=== PATIENT | female | born 1950 | race Asian ===

== ENCOUNTER 2019-11-29 17:23 | Inpatient (IN) | payer MEDICARE, OTHER ==
[~2019-11-29] VITALS: Ht 149.9 cm; Wt 54.9 kg
--- NOTE | 2019-11-29 17:36 | NUR ---
PT CAN NOT PROVIDE INFORMATION ABOUT HER HOME MEDICATION.
--- NOTE | 2019-11-29 17:40 | NUR ---
PATIENT IS AWAKE AND ALERT BUT SHE IS NOT COOPERATIVE, NOT ALLOWING STAFF TO OBTAIN BLOOD AND 12 LEAD EKG. WILL TRY TO EXPLAIN PROCESS TO PATIENT IN HER LANGUAGE AND ASSURE HER OF HER SAFETY.
[2019-11-29] MEDS ORDERED: HALOPERIDOL LACTATE 5 MG/1 ML VIAL ONE (17:51)
[2019-11-29] MEDS ORDERED: LORAZEPAM 2 MG/1 ML VIAL ONE (17:51)
[2019-11-29] MEDS ORDERED: LORAZEPAM 2 MG/1 ML VIAL IM ONE (18:00)
[2019-11-29] MEDS ORDERED: HALOPERIDOL LACTATE 5 MG/1 ML VIAL IM ONE (18:00)
[2019-11-29 18:02] LABS: *BILIRUBIN,URIN NEGATIVE (NEGATIVE); *BLOOD, URINE 1+ (NEGATIVE); *COLOR,URINE LIGHT YELLOW (YELLOW); *KETONES,URINE NEGATIVE (NEGATIVE); *UROBILINOGEN,URINE 0.2 E.U./dl (NORMAL); LEUKOCYTE ESTERASE ,URINE 1+ (NEGATIVE); NITRITE, URINE NEGATIVE (NEGATIVE); UGLUCOSE NEGATIVE (NEGATIVE)
[2019-11-29 18:09] LABS: *CLARITY,URINE SLIGHTLY HAZY (CLEAR)
[2019-11-29 18:11] LABS: BACTERIA,URINE FEW /HPF (NONE SEEN); SQUAMOUS EPITHELIAL CELL,UR MODERATE /HPF (NONE SEEN)
[2019-11-29 18:13] LABS: *AMPHETAMINE, URINE NEGATIVE (NEGATIVE); *BARBITURATE, URINE NEGATIVE (NEGATIVE); *CANNABINOID, URINE NEGATIVE (NEGATIVE); *COCCAINE, URINE NEGATIVE (NEGATIVE); *OPIATE, URINE NEGATIVE (NEGATIVE); *PHENCYCLIDINE SCREEN,URINE NEGATIVE (NEGATIVE)
--- NOTE | 2019-11-29 18:23 | NUR ---
PATIENT IS AWAKE BUT CALM, WE WERE ABLE TO DO 12 LEAD EKG.
[2019-11-29 18:58] LABS: BASOPHILS # (AUTO) 0.1 K/uL (0.0-8.0); BASOPHILS % (AUTO) 0.8 % (0.0-2.0); EOSINOPHILS % (AUTO) 0.4 % (0.0-7.0); HEMATOCRIT 38.3 % (31.2-41.9); HEMOGLOBIN 13.1 g/dL (10.9-14.3); LYMPHOCYTES # (AUTO) 2.2 K/uL (20.0-40.0); LYMPHOCYTES % (AUTO) 27.5 % (20.5-51.5); MEAN CORPUSCULAR HEMOGLOBIN 30.4 uug (24.7-32.8); MEAN CORPUSCULAR HGB CONC 34 g/dL (32.3-35.6); MEAN CORPUSCULAR VOLUME 89.1 fL (75.5-95.3); MONOCYTES # (AUTO) 0.6 K/uL (2.0-10.0); MONOCYTES % (AUTO) 7.2 % (0.0-11.0); NEUTROPHILS % (AUTO) 64.1 % (38.5-71.5); PLATELET COUNT (AUTO) 378 K/uL (179-408); WHITE BLOOD COUNT (AUTO) 7.8 K/uL (3.8-11.8)
--- NOTE | 2019-11-29 19:02 | NUR ---
Patient is sitting up eating dinner...
--- NOTE | 2019-11-29 19:04 | NUR ---
hand off report given to Iglesia THOMAS
[2019-11-29 19:05] LABS: CARBON DIOXIDE 26 mmol/L (21-32); CHLORIDE 104 mmol/L (98-107); CREATININE 0.8 mg/dL (0.6-1.3); GLUCOSE 115 mg/dL (74-106); POTASSIUM 3.9 mmol/L (3.5-5.1); UREA NITROGEN, BLOOD 16 mg/dL (7-18)
[2019-11-29 19:11] LABS: ALANINE AMINOTRANSFERASE 18 U/L (14-59); ALKALINE PHOSPHATASE 82 U/L (50-136); ASPARTATE AMINOTRANSFERASE 16 U/L (15-37); BILIRUBIN,DIRECT 0.1 mg/dL (0.0-0.2); BILIRUBIN,TOTAL 0.1 mg/dL (0.2-1.0); TOTAL PROTEIN, SERUM 7.7 g/dL (6.4-8.2)
[2019-11-29 19:12] LABS: ACETAMINOPHEN < 2.0 ug/mL (10-30)
[2019-11-29 19:25] LABS: ETHANOL < 3 MG/DL (0-0)
--- NOTE | 2019-11-29 19:54 | NUR ---
REPORT WAS GIVEN TO RN MHU. PT WAS TRANSFERED TO ROOM 137.
--- NOTE | 2019-11-29 20:30 | NUR ---
Pt was brought in to MHU from ER via wheelchair under Dr. Friedman/ Dr. Sebastian. Pt is Ambulatory, very noncooperative, refusing most of the procedures, refused vital signs to be taken, refused skin check.
[2019-11-29] MEDS ORDERED: TEMAZEPAM 7.5 MG CAPSULE PO PRN (20:45)
[2019-11-29] MEDS ORDERED: ACETAMINOPHEN 325 MG TABLET PO PRN (20:45)
[2019-11-29] MEDS ORDERED: BLOOD SUGAR DIAGNOSTIC 1 EACH STRIP VI ONE (20:45)
[2019-11-29] MEDS ORDERED: LORAZEPAM 1 MG TABLET PO PRN (20:45)
[2019-11-29] MEDS ORDERED: MAG HYDROX/AL HYDROX/SIMETH 30 ML LIQUID UDC PO PRN (20:45)
[2019-11-29] MEDS ORDERED: MAGNESIUM HYDROXIDE 30 ML LIQUID UDC PO PRN (20:45)
--- NOTE | 2019-11-30 06:40 | NUR ---
Pt slept 7.0 hrs last night.
[2019-11-30 07:17] LABS: BILIRUBIN,TOTAL 0.3 mg/dL (0.2-1.0); CREATININE 0.8 mg/dL (0.6-1.3); POTASSIUM 4.1 mmol/L (3.5-5.1); TOTAL PROTEIN, SERUM 7.2 g/dL (6.4-8.2)
[2019-11-30 07:30] VITALS: BP 102/69
[2019-11-30] MEDS: NICOTINE 14 MG/24HR PATCH TD SCH (09:24)
--- NOTE | 2019-11-30 14:35 | NUR ---
GPS: Nursing Notes: Destructive Behavior to Others: Patient awake and responding to her name, resistant with nursing care, impaired judgment, believes that she is leaving today, gets easily irritable when redirected, loud and pressured speech, sitting next to the exit door with her jacket, AWOL risk, redirected and reoriented during shift, but unable to formulate a viable plan for self care, stating "I am leaving... Home... Today...", unpredictable behavior, refusing to participate in therapeutic groups, episode of trying to strike to staff, continue with treatment plan.
[2019-11-30] MEDS: QUETIAPINE FUMARATE 25 MG TABLET PO SCH ×2 (17:44→20:17)
[2019-11-30] MEDS: DIVALPROEX 250 MG TABLET.DR PO SCH (17:44)
[2019-11-30 20:00] VITALS: BP 140/85
--- NOTE | 2019-12-01 05:52 | NUR ---
GPS: Pt.now awake and frequently at nurses station and expressing her desire to go home. Re-directed frequently and instructed to wait for doctor to come in for further eval/tx. Pt.listens to staff's re-direction and without any agitation noted. AWOL precautions observed.
[2019-12-01 07:30] VITALS: BP 131/69
[2019-12-01] MEDS: DIVALPROEX 250 MG TABLET.DR PO SCH ×2 (08:53→17:04)
[2019-12-01] MEDS: QUETIAPINE FUMARATE 25 MG TABLET PO SCH ×3 (08:53→20:03)
[2019-12-01] MEDS: NICOTINE 14 MG/24HR PATCH TD SCH (08:53)
--- NOTE | 2019-12-01 09:54 | NUR ---
Social Work Individual Therapy Note: : plywood factory worker met with patient for brief counseling to address the importance of self-care, grooming and bathing. This resume writer attempted to have a meaningful conversation with patient on the importance of accepting bathing and grooming from the staff. While this resume writer was educating patient she stated "Yes, I take care of myself". Patient refused to continue the conversation and walked away. This resume writer will attempt to follow up again.
--- NOTE | 2019-12-01 10:16 | NUR ---
Social Work Initial Discharge Plan: Patient currently resides at [address] [facility] [place] [address]; ([phone]). drop worker will work with the patient and the MD regarding appropirate discharge planning. drop worker will form a safe and proper discharge. Per patient's brother Juve Lisa ([phone]) stated that patient was at [facility] and would want patient back there. This database report writer will follow up.
--- NOTE | 2019-12-01 10:17 | NUR ---
Social Work Family Contact: hall worker contacted patients brother Juve Lisa ([phone]) who stated that patient resided at [facility] and would want her back to that group home. This mortgage or loan underwriter will follow up with the facility to see if patient is welcomed back upon discharge.
--- NOTE | 2019-12-01 10:18 | NUR ---
Social Work Discharge Plan: chemical plant worker contacted Tristen gardner from [facility] ([phone]) who stated that patient is welcomed back upon discharge.
--- NOTE | 2019-12-01 10:38 | NUR ---
Social Work Substance Abuse Intervention:Patient was provided with a brief substance abuse intervention and referred to [facility] , [facility] , and [facility] .
[2019-12-01 15:20] VITALS: BP 199/118
--- NOTE | 2019-12-01 15:47 | NUR ---
GPS: Nursing Notes: Destructive Behavior to Others: Patient awake and responding to her name, impaired judgment, sitting on the floor next to the exit door, staring at the door, AWOL risk, resistant with nursing care at times, believes that she is leaving today, an episode of going into social work coordinator office and threw water at them without provocation, staff got scare and closed the office, redirected during shift, unable to formulate a viable plan for self care, poor anger management, continue with treatment plan.
[2019-12-01 18:45] VITALS: BP 147/80
[2019-12-01 20:00] VITALS: BP 113/91
[2019-12-01] MEDS: DOCUSATE SODIUM 250 MG CAPSULE PO SCH (20:03)
[2019-12-01] MEDS ORDERED: DOCUSATE SODIUM 100 MG CAPSULE PO SCH (21:00)
[2019-12-02 07:54] VITALS: BP 153/116
[2019-12-02] MEDS: NICOTINE 14 MG/24HR PATCH TD SCH (08:13)
[2019-12-02] MEDS: QUETIAPINE FUMARATE 25 MG TABLET PO SCH ×3 (08:13→20:04)
[2019-12-02] MEDS: DIVALPROEX 250 MG TABLET.DR PO SCH ×2 (08:13→17:05)
[2019-12-02 15:23] VITALS: BP 174/96
[2019-12-02 19:43] VITALS: BP 147/67
[2019-12-02] MEDS: DOCUSATE SODIUM 250 MG CAPSULE PO SCH (20:04)
[2019-12-03 07:30] VITALS: BP 147/77
[2019-12-03] MEDS: NICOTINE 14 MG/24HR PATCH TD SCH (08:31)
[2019-12-03] MEDS: DIVALPROEX 250 MG TABLET.DR PO SCH (08:31)
[2019-12-03] MEDS: QUETIAPINE FUMARATE 25 MG TABLET PO SCH ×3 (08:31→20:12)
--- NOTE | 2019-12-03 13:44 | NUR ---
GPS: CALLED AND SPOKE WITH DR. PACHECO, REGARDING PATIENT UA RESULT, PATIENT CALM AND COOPERATIVE, DENIES OF ANY SYMPTOM OF INFECTION, DOCTOR SAYS SHE WILL LOOK INTO IT, AND FOLLOW UP ON THE PENDING CULTURE RESULT, AND CONTINUE MONITOR FOR ANY SIGN OF INFECTION Addendum: 12/03/19 at 1354 by HEIDE GALLARDO RN FOLLOWED UP WITH LABORATORY , URINE CULTURE CONTAMINANTS, AND SPOKE WITH DR. PACHECO WITH NNO, WILL CONTINUE MONITOR
[2019-12-03 16:00] VITALS: BP 170/74
[2019-12-03] MEDS: VALPROIC ACID 250 MG CAPSULE PO SCH (17:33)
[2019-12-03 18:30] LABS: *BILIRUBIN,URIN NEGATIVE (NEGATIVE); *CLARITY,URINE CLEAR (CLEAR); *COLOR,URINE YELLOW (YELLOW); *KETONES,URINE NEGATIVE (NEGATIVE); *UROBILINOGEN,URINE 0.2 E.U./dl (NORMAL); LEUKOCYTE ESTERASE ,URINE 1+ (NEGATIVE); NITRITE, URINE NEGATIVE (NEGATIVE); PH,URINE 5.5 (5.0-8.0); UGLUCOSE NEGATIVE (NEGATIVE)
[2019-12-03 18:53] LABS: *BLOOD, URINE TRACE (NEGATIVE)
[2019-12-03 18:55] LABS: MUCUS,URINE FEW /LPF (0-FEW); RBC,URINE 0-3 /HPF (0-3); SQUAMOUS EPITHELIAL CELL,UR MODERATE /HPF (NONE SEEN)
[2019-12-03 20:00] VITALS: BP 155/72
[2019-12-03] MEDS: ATORVASTATIN 20 MG TABLET PO SCH (20:12)
[2019-12-03] MEDS: DOCUSATE SODIUM 250 MG CAPSULE PO SCH (20:12)
[2019-12-04 07:10] LABS: BASOPHILS # (AUTO) 0.1 K/uL (0.0-8.0); BASOPHILS % (AUTO) 1.1 % (0.0-2.0); EOSINOPHILS # (AUTO) 0.1 K/uL (0.0-0.7); EOSINOPHILS % (AUTO) 1.1 % (0.0-7.0); HEMATOCRIT 38.1 % (31.2-41.9); HEMOGLOBIN 12.8 g/dL (10.9-14.3); LYMPHOCYTES % (AUTO) 41.6 % (20.5-51.5); MEAN CORPUSCULAR HEMOGLOBIN 30.3 uug (24.7-32.8); MEAN CORPUSCULAR HGB CONC 34 g/dL (32.3-35.6); MONOCYTES # (AUTO) 0.5 K/uL (2.0-10.0); MONOCYTES % (AUTO) 6.6 % (0.0-11.0); NEUTROPHILS # (AUTO) 3.6 K/uL (1.8-8.9); NEUTROPHILS % (AUTO) 49.6 % (38.5-71.5); PLATELET COUNT (AUTO) 384 K/uL (179-408); RED BLOOD CELL COUNT(AUTO) 4.23 MIL/uL (3.63-4.92); WHITE BLOOD COUNT (AUTO) 7.3 K/uL (3.8-11.8)
[2019-12-04 07:21] LABS: CARBON DIOXIDE 29 mmol/L (21-32); CHLORIDE 108 mmol/L (98-107); CREATININE 0.8 mg/dL (0.6-1.3); GLUCOSE 95 mg/dL (74-106); POTASSIUM 4.4 mmol/L (3.5-5.1); UREA NITROGEN, BLOOD 11 mg/dL (7-18)
[2019-12-04 07:30] VITALS: BP 109/64
[2019-12-04] MEDS: VALPROIC ACID 250 MG CAPSULE PO SCH ×3 (08:10→16:14)
[2019-12-04] MEDS: QUETIAPINE FUMARATE 25 MG TABLET PO SCH ×3 (08:12→20:43)
[2019-12-04] MEDS: NICOTINE 14 MG/24HR PATCH TD SCH (08:12)
--- NOTE | 2019-12-04 15:59 | NUR ---
Gps/Manufacturing Engineer Automotive- Isolative, stays in her room in bed most of the time, encouraged to attend her group therapy , compliant with her routine meds. encouraged to verbalized needs and feelings
[2019-12-04 16:25] VITALS: BP 141/83
--- NOTE | 2019-12-04 20:00 | NUR ---
RECEIVED PATIENT IN HER ROOM, SHE IS NOTED AWAKE, AND SMILING. ASSESSMENT IS LIMITED D/T LANGUAGE BARRIER (SHE IS TAMAZIGHT). V/S STABLE, PATIENT WAS GIVEN PO FLUIDS AND SNACKS. SHE IS REASSURED FOR HER SAFETY, SAFETY AND FALL PRECAUTION IN PLACE. WILL CONTINUE TO MONITOR.
[2019-12-04 20:39] VITALS: BP 109/58
[2019-12-04] MEDS: ATORVASTATIN 20 MG TABLET PO SCH (20:42)
[2019-12-04] MEDS: DOCUSATE SODIUM 250 MG CAPSULE PO SCH (20:43)
--- NOTE | 2019-12-05 08:25 | NUR ---
Social Work Discharge: Patient will be discharged [place] [address]; ([phone]) via Ambulance transportation at 12PM. Outpatient Case Manager spoke with Tristen, Marine Radio Installer And Servicer at [facility]; ([phone]), who stated patient will be accepted at facility today. Patient is alert and oriented x1-2, and is not able to plan for self-care at this time, but is willing to accept care provided for her at the facility. Patient denies any suicidal or homicidal ideations. Patient is aware and agreeable with discharge plans. Patients brother Juve Lisa, ([phone]) is aware and agreeable with discharge plans. Patient will continue to follow-up with her Psychiatrist Dr. Sebastian and Catastrophe Claims [place] [address]; ([phone]). Patient will follow-up at the center. Patient presents with euthymic mood and congruent affect. Addendum: 12/05/19 at 0910 by BRENDA WADE Patient will be discharged [place] [address]; ([phone]) via Ambulance transportation at 12PM. Outpatient Case Manager spoke with Tristen Marine Radio Installer And Servicer at [facility]; ([phone]), who stated patient will be accepted at facility today. Patient is alert and oriented x1-2, and is not able to plan for self-care at this time, but is willing to accept care provided for her at the facility. Patient denies any suicidal or homicidal ideations. Patient is aware and agreeable with discharge plans. Patients brother Juve Lisa, ([phone]) is aware and agreeable with discharge plans. Patient will continue to follow-up with her Psychiatrist Dr. Sebastian and Catastrophe Claims [place] [address]; ([phone]) and will discuss smoking cessation and address substance abuse dependency. Patient was provided with a brief substance abuse intervention and referred to [facility] , Ad[facility] Su[facility] , and [facility] . Patient presents with euthymic mood and congruent affect.
--- NOTE | 2019-12-05 08:26 | NUR ---
Social Work Firearms Report: Yard Demurrage Clerk completed and submitted a [employer] firearms report for 5250 grave disability certification. A copy of report has been placed in patient chart.
--- NOTE | 2019-12-05 08:27 | NUR ---
Social Work Family Contact: optical goods worker contacted patients brother Juve Lisa, ([phone]) and left a voicemail that patient will be discharged to [facility] today.
[2019-12-05 08:30] VITALS: BP 124/52
[2019-12-05] MEDS: VALPROIC ACID 250 MG CAPSULE PO SCH (08:44)
[2019-12-05] MEDS: QUETIAPINE FUMARATE 25 MG TABLET PO SCH (08:44)
[2019-12-05] MEDS: NICOTINE 14 MG/24HR PATCH TD SCH (08:45)
--- NOTE | 2019-12-05 09:58 | NUR ---
Social Work Individual Therapy Note: sort line worker met with patient for brief counseling to address the importance of self-care, grooming and bathing. Patient was able to be cooperative with this technical writer and was able to listen. She stated that she "takes care of herself" and will continue to take care of her needs. sort line worker provided education and actively listened to patient.
--- NOTE | 2019-12-05 11:12 | NUR ---
Gps/Vacuum Tank Tender- Called [facility], report given to Hood Evans. Patient was well informed of her discharged plan today, pi noon.ck u[p time arranged for 1200.
== END 2019-12-05 12:35 | DRG 885 ==
LOC: ER 17:33 → GPS 19:33
PROVIDERS: ADMIT Psychiatry & Neurology Psychiatry; ATTEND Internal Medicine
DX: F29 Unspecified psychosis not due to a substance or known physiological condition (principal); F03.91 Unspecified dementia, unspecified severity, with behavioral disturbance; F41.9 Anxiety disorder, unspecified; M62.81 Muscle weakness (generalized); F32.9 Major depressive disorder, single episode, unspecified
CPT/HCPCS: 36415; 71045; 80164; 80307; 85025; 87086; 93005; A4663; G0480; G0480-TC; J1630; J2060; J3490

== ENCOUNTER 2021-07-09 20:22 | Inpatient (IN) | payer MEDICARE, OTHER ==
[~2021-07-09] VITALS: Ht 149.9 cm; Wt 55.3 kg
[~2021-07-09 20:22] MED LIST: DOCU100C36 PO
--- NOTE | 2021-07-09 20:25 | NUR ---
Dr. Álvarez at bedside for MSE.
[2021-07-09] MEDS ORDERED: ZIPRASIDONE MESYLATE 20 MG VIAL IM ONE ×2 (20:45→21:05)
[2021-07-09 20:51] LABS: HEMATOCRIT 41.1 % (31.2-41.9); MEAN CORPUSCULAR HEMOGLOBIN 30.5 uug (24.7-32.8); MEAN CORPUSCULAR VOLUME 90.5 fL (75.5-95.3); PLATELET COUNT (AUTO) 407 K/uL (179-408)
[2021-07-09 20:58] LABS: CARBON DIOXIDE 28 mmol/L (21-32); CHLORIDE 100 mmol/L (98-107); CREATININE 0.7 mg/dL (0.6-1.3); GLUCOSE 114 mg/dL (74-106); POTASSIUM 3.8 mmol/L (3.5-5.1); UREA NITROGEN, BLOOD 11 mg/dL (7-18)
[2021-07-09 21:04] LABS: ACETAMINOPHEN < 2.0 ug/mL (10-30); ALANINE AMINOTRANSFERASE 45 U/L (14-59); ALKALINE PHOSPHATASE 109 U/L (50-136); ASPARTATE AMINOTRANSFERASE 35 U/L (15-37); BILIRUBIN,DIRECT 0.1 mg/dL (0.0-0.2); BILIRUBIN,TOTAL 0.3 mg/dL (0.2-1.0)
[2021-07-09 21:07] LABS: ETHANOL < 3 MG/DL (0-0)
--- NOTE | 2021-07-09 21:08 | NUR ---
Pt out of ER for CT.
--- NOTE | 2021-07-09 21:25 | NUR ---
Pt back to ER from CT.
[2021-07-09 21:58] LABS: *BILIRUBIN,URIN NEGATIVE (NEGATIVE); *BLOOD, URINE NEGATIVE (NEGATIVE); *CLARITY,URINE CLEAR (CLEAR); *COLOR,URINE STRAW (YELLOW); *KETONES,URINE NEGATIVE (NEGATIVE); *UROBILINOGEN,URINE 0.2 E.U./dl (NORMAL); LEUKOCYTE ESTERASE ,URINE NEGATIVE (NEGATIVE); NITRITE, URINE NEGATIVE (NEGATIVE); PH,URINE 6.5 (5.0-8.0); UGLUCOSE NEGATIVE (NEGATIVE)
[2021-07-09 22:08] LABS: *AMPHETAMINE, URINE NEGATIVE (NEGATIVE); *CANNABINOID, URINE NEGATIVE (NEGATIVE); *COCCAINE, URINE NEGATIVE (NEGATIVE); *OPIATE, URINE NEGATIVE (NEGATIVE); *PHENCYCLIDINE SCREEN,URINE NEGATIVE (NEGATIVE)
--- NOTE | 2021-07-09 23:30 | NUR ---
Pt medically cleared by Dr. Álvarez.
[2021-07-09] MEDS ORDERED: OLAN20TA24 PO (23:45)
[2021-07-09] MEDS ORDERED: DIVA500T2 PO (23:45)
--- NOTE | 2021-07-09 23:50 | NUR ---
Report given to Thelma THOMAS MHU.
[2021-07-10] MEDS ORDERED: BLOOD SUGAR DIAGNOSTIC 1 EACH STRIP VI ONE (00:30)
[2021-07-10] MEDS ORDERED: ACETAMINOPHEN 325 MG TABLET PO PRN (00:30)
[2021-07-10] MEDS ORDERED: MAGNESIUM HYDROXIDE 30 ML LIQUID UDC PO PRN (00:30)
[2021-07-10] MEDS ORDERED: MAG HYDROX/AL HYDROX/SIMETH 30 ML LIQUID UDC PO PRN (00:30)
[2021-07-10 01:51] VITALS: BP 174/85
[2021-07-10] MEDS ORDERED: CLONIDINE HCL 0.2 MG TABLET PO STA (02:07)
[2021-07-10 02:40] VITALS: BP 185/95
--- NOTE | 2021-07-10 02:40 | NUR ---
Patient arrived to the MHU via gurney , sleeping but arousable by touch. No signs of agitation. Patient helped to a boo chair and the the blood pressure was 185/95. The emergency response technician for Ale Silver MANAGER ETL was notified and this conventional underwriter received an order for 0.2 mg clonidine PO x1. The patient has not taken medications for 2 weeks per the hold, but this conventional underwriter will attempt to administer the medication. The MANAGER ETL said that if patient does not take the pill, they will need to be readmitted to the ER to be stabilized for admission. Continuing to monitor and provide a safe environment.
--- NOTE | 2021-07-10 03:00 | NUR ---
Patient took the medication without any difficulty. Upon recheck of the b/p it was 145/89. Patient will remain in the unit and the VS will be monitored and treated as needed.
[2021-07-10] MEDS ORDERED: CLONIDINE HCL 0.2 MG TABLET ONE (03:13)
[2021-07-10 03:30] VITALS: BP 145/89
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
[2021-07-10 07:54] VITALS: BP 123/98
[2021-07-10] MEDS ORDERED: CLONIDINE HCL 0.1 MG TABLET PO PRN (10:00)
[2021-07-10] MEDS: LISINOPRIL 5 MG TABLET PO SCH (10:39)
[2021-07-10] MEDS: OLANZAPINE 5 MG TABLET PO SCH ×2 (10:39→20:19)
[2021-07-10] MEDS: DIVALPROEX 250 MG TABLET.DR PO SCH ×3 (10:39→17:31)
[2021-07-10] MEDS: LORAZEPAM 1 MG TABLET PO PRN (13:12)
[2021-07-10 16:38] VITALS: BP 94/65
--- NOTE | 2021-07-10 18:27 | NUR ---
GPS: Nursing Notes: Thought Disorder: Patient is awake and responding to her name, cooperative with nursing care, but minimal participation in therapeutic groups, responding to internal stimuli by shouting to unseen others, episodes of touching the air when talking to unseen others, redirected and reoriented during shift, compliant with her medications, loud and pressured speech at times toward staff, unable to formulate a viable plan for self care, continue to monitor for safety, continue with treatment plan.
[2021-07-10 20:02] VITALS: BP 111/62
[2021-07-10] MEDS: ATORVASTATIN 10 MG TABLET PO SCH (20:19)
[2021-07-10] MEDS: DOCUSATE SODIUM 250 MG CAPSULE PO SCH (20:19)
--- NOTE | 2021-07-11 05:52 | NUR ---
GPS: Pt.slept 8 hrs.last night. Observed to be talking to self and laughing inappropriately. Re-directed prn.. No increased agitation noted. Will continue to monitor.
[2021-07-11 07:38] VITALS: BP 136/79
[2021-07-11] MEDS: OLANZAPINE 5 MG TABLET PO SCH ×2 (08:41→20:10)
[2021-07-11] MEDS: LISINOPRIL 5 MG TABLET PO SCH (08:41)
[2021-07-11] MEDS: DIVALPROEX 250 MG TABLET.DR PO SCH ×3 (08:41→17:00)
--- NOTE | 2021-07-11 15:33 | NUR ---
BRENDA Initial Discharge Plan: Pt currently resides at home [address], [place] [address]; ([phone]) with her cousin, Jared ([phone]). Per Jared, he would like the pt to return to [facility]. BRENDA will continue to work with the pt and the MD regarding appropriate discharge planning. BRENDA will form a safe and proper discharge.
--- NOTE | 2021-07-11 15:35 | NUR ---
Firearms Report: Home Health Outreach Coordinator completed and submitted a [employer] firearms report for 5150 grave disability certifications. A copy of report has been placed in patient chart.
--- NOTE | 2021-07-11 15:35 | NUR ---
BRENDA Family Contact: BRENDA spoke with patient's cousin, Jared ([phone]) and discussed treatment and discharge plan. Per Jared, he would like the pt to return to [facility].
[2021-07-11 15:42] VITALS: BP 127/64
--- NOTE | 2021-07-11 18:59 | NUR ---
GPS: Nursing Notes: Thought Disorder: Patient is awake and responding to her name, cooperative with nursing care, compliant with her medications, responding to internal stimuli by talking and grabbing the air with her hands, needs prompting to participate in therapeutic groups, unable to formulate a viable plan for self care, continue to monitor for safety, continue with treatment plan.
[2021-07-11] MEDS: ATORVASTATIN 10 MG TABLET PO SCH (20:10)
[2021-07-11] MEDS: DOCUSATE SODIUM 250 MG CAPSULE PO SCH (20:10)
[2021-07-11] MEDS: LORAZEPAM 1 MG TABLET PO PRN (20:37)
[2021-07-11 20:41] VITALS: BP 121/62
--- NOTE | 2021-07-11 20:42 | NUR ---
GPS: Pt.is anxious,restless,and responding to internal stimuli. Re-directed prn. Due bedtime meds.were already given earlier. Ativan 1mg PO given at this time. Will monitor effectiveness. Safe environment provided.
[2021-07-12 07:52] VITALS: BP 89/65
[2021-07-12] MEDS: LISINOPRIL 5 MG TABLET PO SCH ×2 (08:14→16:51)
[2021-07-12] MEDS: OLANZAPINE 5 MG TABLET PO SCH ×2 (08:14→20:06)
[2021-07-12] MEDS: DIVALPROEX 250 MG TABLET.DR PO SCH ×3 (08:14→16:57)
--- NOTE | 2021-07-12 11:39 | NUR ---
BRENDA Family Contact: SW spoke with patient's cousin, Jared ([phone]) who requested for a SNF referral to [facility] [address] [place] [address] .
--- NOTE | 2021-07-12 11:40 | NUR ---
BRENDA SNF Referral: BRENDA faxed [facility]'s referral packet [facility] [address] [facility] [address] attention Cristina applications coordinator ([phone]) (fax: [phone]) Addendum: 07/12/21 at 1333 by TRISH PEARL Cristina informed this social media marketing analyst they are unable to accept patient due to psych issues.
--- NOTE | 2021-07-12 13:35 | NUR ---
BRENDA SNF Referral: BRENDA faxed patient's referral packet to [facility] attention to Jordyn (f: [phone]) fo review. Addendum: 07/13/21 at 1153 by TRISH PEARL Pt is accepted for placement.
--- NOTE | 2021-07-12 15:39 | NUR ---
GPS: Nursing Notes: Thought Disorder: Patient is awake and responding to internal stimuli by talking to unseen others, episodes of shouting and grabbing the air with her hands, redirected and reoriented to reality, following staff directions, cooperative with nursing care, compliant with her medications, needs prompting to participate in therapeutic groups, isolative and withdrawn in her room at times, unable to formulate a viable plan for self care, pleasant and interactive with staff, continue to monitor for safety, continue with treatment plan.
[2021-07-12 16:00] VITALS: BP 157/87
[2021-07-12 19:58] VITALS: BP 118/68
[2021-07-12] MEDS: ATORVASTATIN 10 MG TABLET PO SCH (20:06)
[2021-07-12] MEDS: DOCUSATE SODIUM 250 MG CAPSULE PO SCH (20:06)
[2021-07-12] MEDS: LORAZEPAM 1 MG TABLET PO PRN (23:37)
--- NOTE | 2021-07-12 23:37 | NUR ---
GPS: Pt.noted to be anxious,talking to self/hallucinating. Re-directed prn. Ativan 1mg PO given. No aggressive behavior noted. Will continue to monitor.
[2021-07-13 07:30] VITALS: BP 119/70
[2021-07-13] MEDS: LISINOPRIL 5 MG TABLET PO SCH (09:00)
[2021-07-13] MEDS: DIVALPROEX 250 MG TABLET.DR PO SCH ×3 (09:11→17:10)
[2021-07-13] MEDS: OLANZAPINE 5 MG TABLET PO SCH ×2 (09:16→21:12)
--- NOTE | 2021-07-13 11:53 | NUR ---
BRENDA Family Contact: BRENDA spoke with patient's cousin, Jared ([phone]) and informed that [facility] did not accept patient for placement. SW informed [facility] accepted pt. Mr. Coleman is agreeable with [facility].
[2021-07-13 16:00] VITALS: BP 157/80
--- NOTE | 2021-07-13 18:41 | NUR ---
GPS: PT ON BED TODAY. PT NO AGITATION NOTED. COMPLIANT WITH MEDICATIONS. REDIRECTED PT WHEN TALKING TO HERSELF. PT EATS GOOD WITH EVERY MEAL.
[2021-07-13 20:00] VITALS: BP 116/69
[2021-07-13] MEDS: DOCUSATE SODIUM 250 MG CAPSULE PO SCH (21:11)
[2021-07-13] MEDS: ATORVASTATIN 10 MG TABLET PO SCH (21:11)
--- NOTE | 2021-07-14 00:39 | NUR ---
Received to care, lying in bed, pleasant upon approach. compliant with medications. Bedtime snacks were given, and fluids were encouraged. She was observed to be talking to self, at times. She fell asleep, around 2300, and as of now, she appears to be asleep. No distress noted. will continue to monitor closely.
--- NOTE | 2021-07-14 06:53 | NUR ---
Slept 4.75 hours, total. Continues to sleep. No distress noted.
[2021-07-14 07:30] VITALS: BP 94/48
[2021-07-14] MEDS: LISINOPRIL 5 MG TABLET PO SCH (08:40)
[2021-07-14] MEDS: OLANZAPINE 5 MG TABLET PO SCH ×2 (08:40→20:22)
[2021-07-14] MEDS: DIVALPROEX 250 MG TABLET.DR PO SCH ×3 (08:40→16:01)
[2021-07-14 16:00] VITALS: BP 151/79
--- NOTE | 2021-07-14 16:45 | NUR ---
GPS: PT ALERT AND ORIENTED X 2. PT WITH EPISODE OF TALKING TO SELF. WANDERING AROUND THE HALLWAY BUT DENIES ANY AGRESSIVENESS. COMPLIANT WITH MEDICATION. COOPERATIVE WITH CARE.
[2021-07-14 20:08] VITALS: BP 116/64
[2021-07-14] MEDS: DOCUSATE SODIUM 250 MG CAPSULE PO SCH (20:23)
[2021-07-14] MEDS: ATORVASTATIN 10 MG TABLET PO SCH (20:23)
--- NOTE | 2021-07-14 21:57 | NUR ---
Received to care, lying in bed, pleasant upon approach. compliant with medications. Bedtime snacks were given, and fluids were encouraged. No psychotic behaviors noted. of now, she appears to be asleep. No distress noted. will continue to monitor closely.
[2021-07-15 07:30] VITALS: BP 166/77
[2021-07-15] MEDS: DIVALPROEX 250 MG TABLET.DR PO SCH ×3 (09:14→17:40)
[2021-07-15] MEDS: LISINOPRIL 5 MG TABLET PO SCH (09:15)
[2021-07-15] MEDS: OLANZAPINE 5 MG TABLET PO SCH ×2 (09:15→20:27)
--- NOTE | 2021-07-15 13:22 | NUR ---
BRENDA PC Hearing: Patient had 5250 probable cause hearing today and it was upheld for grave disability.
[2021-07-15 16:13] VITALS: BP 111/82
[2021-07-15 20:00] VITALS: BP 134/69
[2021-07-15] MEDS: DOCUSATE SODIUM 250 MG CAPSULE PO SCH (20:27)
[2021-07-15] MEDS: ATORVASTATIN 10 MG TABLET PO SCH (20:28)
[2021-07-15] MEDS: ZOLPIDEM 5 MG TABLET PO PRN (22:42)
--- NOTE | 2021-07-16 00:46 | NUR ---
Received to care, lying in bed, pleasant upon approach. compliant with medications. Bedtime snacks were given, and fluids were encouraged. Observed to be talking to self. Assisted with a shower. CAROLINA Emerson, given for insomnia, at 2242, and she was asleep within an hour. As of now, she appears to be asleep. No distress noted. will continue to monitor closely.
--- NOTE | 2021-07-16 06:28 | NUR ---
Slept 6.0 hours, total. Continues to sleep. No distress noted.
[2021-07-16 08:14] VITALS: BP 123/83
[2021-07-16] MEDS: OLANZAPINE 5 MG TABLET PO SCH ×2 (08:41→21:17)
[2021-07-16] MEDS: DIVALPROEX 250 MG TABLET.DR PO SCH ×3 (08:41→16:44)
[2021-07-16] MEDS: LISINOPRIL 5 MG TABLET PO SCH (08:41)
--- NOTE | 2021-07-16 13:10 | NUR ---
GPS: RECEIVE DPT TODAY, ALERT AND VERBALLY RESPONSIVE. LIKES TO WALK AROUND THE HALLWAY. NO AGITATION OR BEHAVIOR NOTED. COOPERATIVE WITH CARE AND COMPLIANT WITH MEDS.
[2021-07-16 15:36] VITALS: BP 110/58
[2021-07-16 20:00] VITALS: BP 109/59
[2021-07-16] MEDS: DOCUSATE SODIUM 250 MG CAPSULE PO SCH (21:17)
[2021-07-16] MEDS: ATORVASTATIN 10 MG TABLET PO SCH (21:17)
[2021-07-17 07:30] VITALS: BP 123/76
[2021-07-17] MEDS: LISINOPRIL 5 MG TABLET PO SCH (08:34)
[2021-07-17] MEDS: DIVALPROEX 250 MG TABLET.DR PO SCH ×3 (08:35→16:35)
[2021-07-17] MEDS: OLANZAPINE 5 MG TABLET PO SCH ×2 (08:35→20:22)
--- NOTE | 2021-07-17 09:00 | NUR ---
GPS: RECEIVED PT ON BED. AWAKE, ALERT AND VERBALLY RESPONSIVE WITH MINIMAL CANADIAN. PT NO AGITATION NOTED. CALM AND COOPERATIVE WITH CARE.
[2021-07-17 16:00] VITALS: BP 128/82
[2021-07-17 20:00] VITALS: BP 72/49
[2021-07-17] MEDS: DOCUSATE SODIUM 250 MG CAPSULE PO SCH (20:21)
[2021-07-17 20:44] VITALS: BP 138/68
[2021-07-17 20:45] VITALS: BP 138/68
[2021-07-17] MEDS: ATORVASTATIN 10 MG TABLET PO SCH (21:21)
[2021-07-18] MEDS: DIVALPROEX 250 MG TABLET.DR PO SCH ×3 (08:16→16:47)
[2021-07-18] MEDS: LISINOPRIL 5 MG TABLET PO SCH (08:16)
[2021-07-18] MEDS: OLANZAPINE 5 MG TABLET PO SCH ×2 (08:17→20:10)
[2021-07-18 08:28] VITALS: BP 141/71
[2021-07-18 09:17] LABS: CREATININE 0.9 mg/dL (0.6-1.3); POTASSIUM 4.2 mmol/L (3.5-5.1)
[2021-07-18 15:34] VITALS: BP 127/75
[2021-07-18 19:55] VITALS: BP 113/70
--- NOTE | 2021-07-18 20:05 | NUR ---
Received patient in her room, pleasant upon approach, med compliant, semi fair insight and semi fair judgement. Speaks limited polish but able to communicate her needs. Patient will remain in a psych facility for further evaluation and treatment.
[2021-07-18] MEDS: DOCUSATE SODIUM 250 MG CAPSULE PO SCH (20:09)
[2021-07-18] MEDS: ATORVASTATIN 10 MG TABLET PO SCH (20:10)
[2021-07-19 07:30] VITALS: BP 109/71
[2021-07-19] MEDS: DIVALPROEX 250 MG TABLET.DR PO SCH ×3 (08:39→16:51)
[2021-07-19] MEDS: OLANZAPINE 5 MG TABLET PO SCH ×2 (08:41→20:09)
[2021-07-19] MEDS: LISINOPRIL 5 MG TABLET PO SCH (08:41)
[2021-07-19 15:06] VITALS: BP 133/70
--- NOTE | 2021-07-19 17:48 | NUR ---
patient is alert and oriented. she is cooperative and redirectable. she is isolative to her room and has minimal interaction with others. patient is compliant with medications, no adverse reaction noted. patient is able to ambulate independently. able to tolerate food and fluids. patient encouraged to participate in unit therapeutic milieu.
[2021-07-19 19:58] VITALS: BP 126/72
[2021-07-19] MEDS: DOCUSATE SODIUM 250 MG CAPSULE PO SCH (20:10)
[2021-07-19] MEDS: ATORVASTATIN 10 MG TABLET PO SCH (20:10)
[2021-07-20] MEDS: ZOLPIDEM 5 MG TABLET PO PRN (01:44)
[2021-07-20 07:30] VITALS: BP 115/72
[2021-07-20 08:18] VITALS: BP 113/72
[2021-07-20] MEDS: LISINOPRIL 5 MG TABLET PO SCH (08:18)
[2021-07-20] MEDS: DIVALPROEX 250 MG TABLET.DR PO SCH ×2 (08:18→12:28)
[2021-07-20] MEDS: OLANZAPINE 5 MG TABLET PO SCH (08:18)
--- NOTE | 2021-07-20 08:23 | NUR ---
Discharge Note: [facility] [address] [place] [address] ([phone]) via ambulance at 1PM. Spoke with Jordyn cdl program coordinator at the facility who states they are ready to accept the patient today. Patient will follow-up at the facility with Dr. Willis Hurricane Tracker and Dr. Monroe Psychiatrist. Patient is alert and oriented times 2, denies suicidal or homicidal ideation, and is aware and agreeable with discharge plans. Patient presents with withdrawn mood and congruent affect. Patient is unable to plan for self-care at this time, however, is willing to accept care provided at the facility. Patients caregiver Jared Lisa ([phone])) is aware and agreeable with discharge plans.
--- NOTE | 2021-07-20 13:40 | NUR ---
Patient discharged to [facility] today . Patient will follow-up at the facility with Dr. Willis Wellness Coach and Dr. Monroe Psychiatrist. Patient is alert and oriented times 2, denies suicidal or homicidal ideation, and is aware and agreeable with discharge plans. vital sign stable ,all personal belonging return to patient.report given to Raul THOMAS at [facility].
== END 2021-07-20 14:00 | DRG 885 ==
LOC: ER 20:25 → GPS 07-10 00:11
PROVIDERS: ADMIT Psychiatry & Neurology Psychiatry; ATTEND Hospitalist
DX: F25.0 Schizoaffective disorder, bipolar type (principal); F23 Brief psychotic disorder; I10 Essential (primary) hypertension; Z20.822 Contact with and (suspected) exposure to COVID-19; E78.5 Hyperlipidemia, unspecified; F03.90 Unspecified dementia, unspecified severity, without behavioral disturbance, psychotic disturbance, mood disturbance, and anxiety; F41.9 Anxiety disorder, unspecified; F32.A Depression, unspecified; R53.1 Weakness; E11.9 Type 2 diabetes mellitus without complications
CPT/HCPCS: 36415; 70450; 71045; 80164; 85025; 93005; 97161; A4663; C1758; G0480; J3486; J3490